=== PATIENT | female | born 1935 | race Caucasian/White ===

== ENCOUNTER 2020-12-27 11:01 | IRF | payer MEDICARE, MEDICAID, SELFPAY ==
[2020-12-27 11:00] VITALS: BP 164/76; PULSE 85; RESP 18; TEMP 36.3; O2SAT 100; BMI 25.8
--- NOTE | 2020-12-27 11:01 | ADMGEN ---
This patient, Lola Sung, was admitted to [facility] Room 226-02. Patient/family oriented to hospital policies and general routines including ID bracelet, bed and alarms, visiting hours, pain management, procedures, bathroom and other care routines, personal items, smoking policy, room service/diet, and visiting hours. Information on how to activate the Rapid Response Team has been discussed. Patient/Family are encouraged to report perceived risks to care and to ask questions if they do not understand what they are told or what they should do.
[2020-12-27 11:23] VITALS: BMI 25.8
[2020-12-27 12:02] LABS: Glucose Point of Care 180 (65-105)
[2020-12-27 14:00] VITALS: BP 120/96; PULSE 52; RESP 18; TEMP 36.2; O2SAT 96
[2020-12-27] MEDS: ACETAMINOPHEN 500 MG TABLET 1000 MG PO (14:04)
--- NOTE | 2020-12-27 14:20 | PHAR ---
Addendum entered by Chari Zambrano, PharmD 12/27/20 14:24: CAPECITABINE 500MG TABLETS VERIFIED BY PHARMACY TAKE 1 TAB PO BID FOR 14 DAYS ON THEN 7 DAYS OFF EVERY 21 DAY CYCLE RX#[id number] Original Note: HOME MEDICATIONS: UNABLE TO VERIFY HOME VITAMINS - UNMARKED TABLETS
--- NOTE | 2020-12-27 16:01 | WPDREHABHP ---
H&P: HPI History of Present Illness Date/Time: 12/27/20 16:01 Chief Complaint: left middle cerebral artery infarct Narrative: HISTORY OF PRESENT ILLNESS: The patient's primary rehab impairment category is 0 1 stroke The etiologic diagnosis is left middle cerebral artery infarct I saw this patient [id number] on 12/27/2020 The patient is a 85-year-old female with prior medical history of atrial fib, coronary artery disease with 1 cardiac stent, diabetes mellitus type 2, hypertension who presented to [facility] on 12/24/2020 with complaints of slurred speech and right-sided facial droop. Symptoms started on 12/21/[address] showed new left frontal lobe hypodensity with no significant mass effect on the left lateral ventricle. Carotid CTA showed occlusion of the left middle cerebral artery am too segment. Recannulization was not recommended patient was admitted to ICU. Neurology was consulted and found that the patient had not been taking her blood thinners due to easy bruising and her diabetes was not well-controlled. Patient had a hemoglobin A1c of 10.0 cholesterol was 243 and LDL was 141. patient was placed on aspirin, Plavix, and Lipitor. Speech evaluation was performed which demonstrated impaired attention and language, dyspraxia. Patient was placed on a dysphagia 3 diet with thin liquids. 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 Neurology follow-up with Dr. Mayo needed and clarification of length of Plavix COVID the patient has not traveled outside the [place] or had contact with someone who is ill at his travel outside the [place] in the past 21 days. The patient has not traveled to an area the [place] that is experiencing no transmission of the Coronavirus and has not had close personal contact with anyone that has. The patient does not have a fever. Patient is not experiencing lower respiratory illness symptoms. COVID test was negative on 12/24/2020 and 12/26/2020 Therapy was initiated at the acute care facility and the patient transferred to us from [facility] on 12/27/2020 FALLS OR SURGERIES: The patient has had no major surgeries in the 100 days prior to admission. She had one falls in the past year. She had falls with injury requirein 9 stitches in the past year. PRIOR LEVEL OF FUNCTION: Eating was [INDEPENDENT] Oral Care was [INDEPENDENT] Toileting Hygiene was [INDEPENDENT] Shower/Bathing was [INDEPENDENT] Upper Body Dressing was [INDEPENDENT] Lower Body Dressing was [INDEPENDENT] Donning/Markesan Footwear was [INDEPENDENT] Rolling Left and Right was [INDEPENDENT] Sit to Lying was [INDEPENDENT] Lying to Sitting was [INDEPENDENT] Sit to Stand was [INDEPENDENT] Bed to Chair Transfers was [INDEPENDENT] Toilet Transfers was [INDEPENDENT] Walking was [INDEPENDENT] 300 ft] with [NO DEVICE] Wheelchair Mobility was [NOT APPLICABLE PRIOR TO ADMISSION] Stairs were [INDEPENDENT for 3 steps] CURRENT LEVEL OF FUNCTION: Eating was supervision or touching assistance Oral Care was supervision or touching assistance Toileting Hygiene was partial to moderate assist Shower/Bathing was partial to moderate assist Upper Body Dressing was partial to moderate assist Lower Body Dressing was partial to moderate assist Donning/Markesan Footwear was partial to moderate assist Rolling Left and Right was partial to moderate assist Sit to Lying was partial to moderate assist Lying to Sitting was partial to moderate assist Sit to Stand was partial to moderate assist Bed to Chair Transfers were partial to moderate assist Toilet Transfers were partial to moderate assist Walking was 4 ft with a roller walker and partial to moderate assistance Wheelchair Mobility was not tested Stairs were not test GOALS: Our therapists will evaluate the patient and establish the goals. However, upon pre-admissio
[2020-12-27 17:19] LABS: Glucose Point of Care 197 (65-105)
[2020-12-27] MEDS: lisinopriL 20 MG TABLET PO (17:21)
[2020-12-27] MEDS: glipiZIDE 5 MG TABLET 10 MG PO (17:21)
[2020-12-27] MEDS: hydroCHLOROthiazide 12.5 MG CAPSULE PO (17:21)
[2020-12-27 20:45] VITALS: PULSE 52; RESP 18; O2SAT 96
[2020-12-27 20:49] LABS: Glucose Point of Care 246 (65-105)
[2020-12-27] MEDS: INSULIN GLARGINE (*BKC) 100 UNITS/ML 15 UNITS SUB-Q (21:46)
[2020-12-27 22:00] VITALS: BP 131/68; PULSE 84; RESP 18; TEMP 36.6; O2SAT 98
[2020-12-28 05:21] LABS: Basophils Percent Auto 0.3 % (0.2-1.2); Eosinophils Absolute Auto 0.1 K/mm3 (0-0.3); Eosinophils Percent Auto 0.9 % (0-4.4); Hematocrit 34.9 % (37.0-47.0); Hemoglobin 12.2 g/dL (12.0-15.0); Immature Granulocyte Absolute 0.01 K/mm3 (0.00-0.031); Immature Granulocyte Percent A 0.1 % (0-0.5); Lymphocytes Absolute Auto 2.77 K/mm3 (0.9-3.2); Lymphocytes Percent Auto 39.3 % (18.3-44.2); Mean Corpuscular Hemoglobin 32.9 pg (26-34); Mean Corpuscular Volume 94.1 fl (80-100); Mean Platelet Volume 10.3 fl (7.4-10.4); Monocytes Absolute Auto 0.8 K/mm3 (0.1-0.6); Monocytes Percent Auto 10.9 % (2.6-8.5); Neutrophils Absolute Auto 3.4 K/mm3 (1.3-6.7); Neutrophils Percent Auto 48.5 % (45.5-73.1); Platelet Count Result 208 k/mm3 (150-375); Red Blood Count 3.71 M/mm3 (4.2-5.4); Red Cell Distribution Width 13.4 % (11.5-14.5)
[2020-12-28 05:36] LABS: Alanine Aminotransferase 12 U/L (4-35); Albumin Level 3.5 g/dL (3.5-5.1); Alkaline Phosphatase 91 U/L (38-126); Anion Gap 4 mmol/L (8-16); Aspartate Amino Transferase 25 U/L (14-36); Bilirubin,Total 0.5 mg/dL (0.2-1.3); Blood Urea Nitrogen 21 mg/dL (7-17); Calcium 9.1 mg/dL (8.4-10.2); Carbon Dioxide 28 mmol/L (22-30); Chloride 104 mmol/L (98-107); Cholesterol 200 mg/dL (0-200); Estimated CRCL calculation 43 ml/min; Estimated Glomerular Filt Rate > 60; Glucose 75 mg/dL (65-105); HDL Direct 64 mg/dL; Potassium 3.2 mmol/L (3.4-5.0); Sodium 136 mmol/L (137-145); Triglycerides 92 mg/dL (<150)
[2020-12-28 05:47] LABS: LDL Cholesterol Direct 102 mg/dL
[2020-12-28 06:00] VITALS: BP 121/44; PULSE 68; RESP 18; TEMP 36.3; O2SAT 99
[2020-12-28 06:09] LABS: Hemoglobin A1C 9.7 % (<5.7)
[2020-12-28] MEDS: glipiZIDE 5 MG TABLET 10 MG PO ×2 (06:45→17:36)
[2020-12-28 07:04] LABS: Glucose Point of Care 78 (65-105)
[2020-12-28] MEDS: ASPIRIN 81 MG ENTERIC TABLET PO (08:58)
[2020-12-28] MEDS: lisinopriL 20 MG TABLET PO ×2 (08:58→17:36)
[2020-12-28] MEDS: PANTOPRAZOLE 40 MG TABLET PO (08:59)
[2020-12-28] MEDS: polyethylene glycoL 3350 17 GM POWD.PACK PO (08:59)
[2020-12-28] MEDS: ENOXAPARIN 40 MG/0.4 ML SYRINGE SUB-Q (08:59)
[2020-12-28] MEDS: CLOPIDOGREL BISULFATE 75 MG TABLET PO (08:59)
[2020-12-28] MEDS: hydroCHLOROthiazide 12.5 MG CAPSULE PO ×2 (08:59→17:36)
[2020-12-28 11:47] LABS: Glucose Point of Care 195 (65-105)
[2020-12-28 12:27] VITALS: BMI 25.8
--- NOTE | 2020-12-28 12:43 | RPD ---
INDIVIDUALIZED PLAN OF CARE FOR Lola Sung Brief Synthesis of Pre-Admission Screen, Post-Admission Evaluation and Therapy Evaluations: The patient presents to rehab with a left middle cerebral artery distribution acute/recent infarction. 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 The complexity of the patient's medical management, nursing, and therapy needs require an inpatient rehab hospital stay with a physician-led interdisciplinary team approach. The patient?s needs will be best met in an intensive program vs. at a lower level of care. The patient requires physician services for medical oversight and coordination of care. Emotional needs will be monitored as depression is a common sequelae of stroke. The patient needs physician monitoring and treatment of hypertension, hyperglycemia, hypokalemia, hyperlipidemia, monitoring for adverse reactions to new medications, and monitoring of infection. The patient requires nursing services for frequent neuro checks, anticoagulation therapy, medication management and education, pressure relief and skin care management, monitoring of labs, bowel and bladder training, diabetes management and education, and fall/safety precautions. The patient will participate in stroke-specific education regarding risk modification to decrease the risk of further stroke; the family will also be invited to participate. Deficits include:ADLs, Balance, Cognition, Endurance, Family Training/Education, Mobility, Pain Management, ROM, Safety, Speech, Strength, Swallowing, Transfers Fender Mechanic Apprentice/Case Management for: Discharge Planning and Patient/Family Counseling Physical Therapy: 5 days per week for 60 minutes. Treatments may include: Therapeutic Exercise, Gait Training, Neuromuscular Re-education, Transfer Training, Community Reintegration, Bed Mobility, Patient/Family Education, Wheelchair Mobility Group Therapy/Concurrent Therapy Rationales: -Improve attention span during functional activities in a distracted environment. -Enhance problem solving and/or adequate judgment skills during functional activities in a distracted environment. -Promote increased safety awareness in a distracted environment to reduce fall risk with functional tasks, transfers, and ambulation to allow a more safe, self-sufficient return to the home environment. -Improve dynamic balance skills to promote safety and independence with functional activities in a distracted environment for maximum gain. Occupational Therapy: 5 days per week for 60 minutes. Treatments may include: Therapeutic Exercise, Therapeutic Activity, Cognitive Training, Self-Care Transfer Training, Community Reintegration, Home Management, Patient/Family Education, Wheelchair Mobility Training, Energy Conservation Training Group Therapy/Concurrent Therapy Rationales: -Allow therapist to observe and teach generalization and carry-over of skills learned in individual therapy. -Enhance problem solving and sequencing skills during therapeutic activities in a distracted environment. -Promote increased safety awareness in a realistic setting to reduce fall risk with functional tasks due to visual and verbal distractions. -Increase functional level with ADLs, ADL transfers and use of adaptive equipment through therapeutic activities with others while promoting safety to allow a more safe, self-sufficient return home. Speech Therapy: 5 days per week for 60 minutes. Treatments may include: Dysphasia Therapy, Speech/Language/Communication Therapy, Cognitive Training, Patient/Family Education Group Therapy/Concurren
[2020-12-28 14:00] VITALS: BP 131/53; PULSE 87; RESP 16; TEMP 36.6; O2SAT 100
--- NOTE | 2020-12-28 15:18 | WPDNEURORHBP ---
Subjective Date/time seen: 12/28/20 15:18 Interval history: The etiologic diagnosis is left middle cerebral artery infarct The patient is a 85-year-old female with prior medical history of atrial fib, coronary artery disease with 1 cardiac stent, diabetes mellitus type 2, hypertension who presented to [facility] on 12/24/2020 with complaints of slurred speech and right-sided facial droop. Symptoms started on 12/21/[address] showed new left frontal lobe hypodensity with no significant mass effect on the left lateral ventricle. Carotid CTA showed occlusion of the left middle cerebral artery am too segment. Recannulization was not recommended patient was admitted to ICU. Neurology was consulted and found that the patient had not been taking her blood thinners due to easy bruising and her diabetes was not well-controlled. Patient had a hemoglobin A1c of 10.0 cholesterol was 243 and LDL was 141. patient was placed on aspirin, Plavix, and Lipitor. Speech evaluation was performed which demonstrated impaired attention and language, dyspraxia. Patient was placed on a dysphagia 3 diet with thin liquids. 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 Neurology follow-up with Dr. Mayo needed and clarification of length of Plavix. Patient with better communication today. Patient voices no complaints Review of Systems Review of Systems: ROS unobtainable: Yes unobtainable due to mental status Functional Status Ambulation Ability Ability to Ambulate 10 Feet: Contact Guard Ability to Ambulate 50 Feet With 2 Turns: Contact Guard Ability to Ambulate 150 Feet: Contact Guard Ambulation Assistive Devices: Walker, Wheeled Transfers Ability Ability to Transfer In/Out of Chair: Contact Guard Exam Narrative: Exam Narrative: patient with right facial droop. External muscles are intact. Poor dentition is noted. Heart rate and rhythm is regular. Lungs are clear to auscultation. Abdomen is soft nontender. Left upper and left lower extremity strength are 4-5 right upper extremity strength is 4- out of 5 right lower extremity strength is 4- to 3+ out of 5 patient demonstrates receptive and expressive aphasia Objective Data Vital Signs Vital Signs: Vital Signs - 24 hr 12/27/20 20:45 12/27/20 22:00 12/28/20 06:00 Temperature 36.6 C 36.3 C L Pulse Rate 52 L 84 68 Respiratory Rate 18 18 18 Blood Pressure 131/68 121/44 L Pulse Oximetry 96 98 99 12/28/20 14:00 Temperature 36.6 C Pulse Rate 87 Respiratory Rate 16 Blood Pressure 131/53 L Pulse Oximetry 100 Intake/Output Intake/Output: Intake & Output 12/25/20 12/26/20 12/27/20 12/28/20 23:59 23:59 23:59 23:59 Intake Total 480 600 Balance 480 600 Meds/Results Medications: Active Medications Generic Name Dose Route Start Last Admin Trade Name Freq PRN Reason Stop Dose Admin Acetaminophen 1,000 mg 12/27/20 13:21 12/27/20 14:04 Acetaminophen 500 Mg Tablet PO 1,000 mg Q6H PRN Administration Pain Aspirin 81 mg 12/28/20 09:00 12/28/20 08:58 Aspirin 81 Mg Enteric Tablet PO 81 mg DAILY GORAN Administration Clopidogrel Bisulfate 75 mg 12/28/20 09:00 12/28/20 08:59 Clopidogrel Bisulfate 75 Mg Tablet PO 75 mg DAILY GORAN Administration Dextrose 12.5 gm 12/27/20 13:16 Dextrose 50% 25 Gm/50 Ml Syringe IV PUSH PRN PRN Hypoglycemia Protocol Enoxaparin Sodium 40 mg 12/28/20 09:00 12/28/20 08:59 Enoxaparin 40 Mg/0.4 Ml Syringe SUB-Q 40 mg DAILY GORAN Administration Glipizide 10 mg 12/27/20 16:30 12/28/20 06:45 Glipizide 5 Mg Tablet PO 10 mg BIDAC GORAN Administration Glucagon 1 mg 12/27/20 13:16 Glucagon For Inj 1 Mg Vial IM PRN PRN Hypoglycemia Protocol Glucose 15 gm 12/27/20 13:16 Glucose Oral Gel 15 Gm Of Glucse In 37.5 Gm Tube PO PRN PRN Hypoglycemia Prot
[2020-12-28 17:23] LABS: Glucose Point of Care 206 (65-105)
[2020-12-28] MEDS: INSULIN ASPART (*BKC) 100 UNITS/ML SUB-Q (17:37)
[2020-12-28] MEDS: INSULIN GLARGINE (*BKC) 100 UNITS/ML 15 UNITS SUB-Q (20:32)
[2020-12-28 20:33] LABS: Glucose Point of Care 215 (65-105)
[2020-12-28 22:00] VITALS: BP 116/67; PULSE 73; RESP 18; TEMP 37.1; O2SAT 100
[2020-12-29] MEDS: glipiZIDE 5 MG TABLET 10 MG PO ×2 (05:44→17:47)
[2020-12-29 05:45] VITALS: BP 124/51; PULSE 67; RESP 16; TEMP 36.1; O2SAT 100
[2020-12-29 07:02] LABS: Glucose Point of Care 153 (65-105)
[2020-12-29] MEDS: CLOPIDOGREL BISULFATE 75 MG TABLET PO (08:58)
[2020-12-29] MEDS: ENOXAPARIN 40 MG/0.4 ML SYRINGE SUB-Q (08:58)
[2020-12-29] MEDS: ASPIRIN 81 MG ENTERIC TABLET PO (08:58)
[2020-12-29] MEDS: lisinopriL 20 MG TABLET PO ×2 (08:59→17:48)
[2020-12-29] MEDS: hydroCHLOROthiazide 12.5 MG CAPSULE PO ×2 (08:59→17:48)
[2020-12-29] MEDS: PANTOPRAZOLE 40 MG TABLET PO (08:59)
[2020-12-29] MEDS: polyethylene glycoL 3350 17 GM POWD.PACK PO (09:00)
[2020-12-29 11:59] LABS: Glucose Point of Care 139 (65-105)
[2020-12-29 14:00] VITALS: BP 122/41; PULSE 74; RESP 20; TEMP 36.3; O2SAT 100
[2020-12-29 17:05] LABS: Glucose Point of Care 171 (65-105)
[2020-12-29] MEDS: INSULIN GLARGINE (*BKC) 100 UNITS/ML 15 UNITS SUB-Q (21:20)
[2020-12-29 21:33] LABS: Glucose Point of Care 206 (65-105)
[2020-12-29 22:00] VITALS: BP 103/74; PULSE 68; RESP 16; TEMP 36.3; O2SAT 100
[2020-12-30 05:53] VITALS: BP 127/44; PULSE 70; RESP 16; TEMP 36; O2SAT 99
[2020-12-30 06:12] LABS: Glucose Point of Care 81 (65-105)
[2020-12-30] MEDS: glipiZIDE 5 MG TABLET 10 MG PO ×2 (06:37→17:45)
[2020-12-30 08:00] VITALS: PULSE 70; RESP 16; O2SAT 99
[2020-12-30] MEDS: ENOXAPARIN 40 MG/0.4 ML SYRINGE SUB-Q (09:21)
[2020-12-30] MEDS: lisinopriL 20 MG TABLET PO ×2 (09:22→17:45)
[2020-12-30] MEDS: hydroCHLOROthiazide 12.5 MG CAPSULE PO ×2 (09:22→17:46)
[2020-12-30] MEDS: CLOPIDOGREL BISULFATE 75 MG TABLET PO (09:22)
[2020-12-30] MEDS: PANTOPRAZOLE 40 MG TABLET PO (09:22)
[2020-12-30] MEDS: polyethylene glycoL 3350 17 GM POWD.PACK PO (09:22)
[2020-12-30] MEDS: ASPIRIN 81 MG ENTERIC TABLET PO (09:22)
[2020-12-30 12:11] LABS: Glucose Point of Care 145 (65-105)
[2020-12-30 14:00] VITALS: BP 107/55; PULSE 68; RESP 18; TEMP 36.6; O2SAT 100
--- NOTE | 2020-12-30 14:05 | WPDNEURORHBP ---
Subjective Date/time seen: 12/30/20 14:05 85 years old admitted to the rehab with left hemispheric stroke in addition to comorbid conditions of 1. Atrial fibrillation 2. Coronary artery disease with stenting 3. Diabetes mellitus 4. Hypertension CTA documented occlusion of the left middle cerebral artery patient had been off her blood thinners for the complaints of easy bruising and the diabetes was not very well controlled , remains afebrile CBC with hemoglobin 12.2 WBC 7.0 blood sugar stable involved in therapy able to ambulate up to 150ft with contact guard and using a wheeled walker Review of Systems Review of Systems: All systems reviewed & are unremarkable except as noted in HPI and below Functional Status Ambulation Ability Ability to Ambulate 10 Feet: Standby Assistance Ability to Ambulate 50 Feet With 2 Turns: Contact Guard Ability to Ambulate 150 Feet: Contact Guard Ambulation Assistive Devices: Walker, Wheeled Transfers Ability Ability to Transfer In/Out of Chair: Standby Assistance Exam Const: General: cooperative and comfortable Nutritional Appearance: average body habitus Orientation/consciousness: oriented to person Limitations: physical limitations Neck: Neck: full ROM Resp: Effort & Inspection: normal respiratory effort Cardio: Rate: regular rate Rhythm: regular rhythm GI: Auscultation: normal bowel sounds Neuro: General: oriented to person Cranial nerves: Yes Equal, round and reactive pupils present, Yes Nystagmus not present and Yes facial symmetry ( asymmetric) Cognition (Neuro): normal cognition Speech: Abnormal speech present Gait exam (Neuro): Assisted gait required Motor exam (neuro): Abnormal motor strength present Psych: Appearance: grossly normal Objective Data Vital Signs Vital Signs: Vital Signs - 24 hr 12/29/20 22:00 12/30/20 05:53 12/30/20 08:00 Temperature 36.3 C L 36.0 C L Pulse Rate 68 70 70 Respiratory Rate 16 16 16 Blood Pressure 103/74 127/44 L Pulse Oximetry 100 99 99 Intake/Output Intake/Output: Intake & Output 12/27/20 12/28/20 12/29/20 12/30/20 23:59 23:59 23:59 23:59 Intake Total 480 840 720 240 Balance 480 840 720 240 Meds/Results Medications: Active Medications Generic Name Dose Route Start Last Admin Trade Name Freq PRN Reason Stop Dose Admin Acetaminophen 1,000 mg 12/27/20 13:21 12/27/20 14:04 Acetaminophen 500 Mg Tablet PO 1,000 mg Q6H PRN Administration Pain Aspirin 81 mg 12/28/20 09:00 12/30/20 09:22 Aspirin 81 Mg Enteric Tablet PO 81 mg DAILY GORAN Administration Clopidogrel Bisulfate 75 mg 12/28/20 09:00 12/30/20 09:22 Clopidogrel Bisulfate 75 Mg Tablet PO 75 mg DAILY GORAN Administration Dextrose 12.5 gm 12/27/20 13:16 Dextrose 50% 25 Gm/50 Ml Syringe IV PUSH PRN PRN Hypoglycemia Protocol Enoxaparin Sodium 40 mg 12/28/20 09:00 12/30/20 09:21 Enoxaparin 40 Mg/0.4 Ml Syringe SUB-Q 40 mg DAILY GORAN Administration Glipizide 10 mg 12/27/20 16:30 12/30/20 06:37 Glipizide 5 Mg Tablet PO 10 mg BIDAC GORAN Administration Glucagon 1 mg 12/27/20 13:16 Glucagon For Inj 1 Mg Vial IM PRN PRN Hypoglycemia Protocol Glucose 15 gm 12/27/20 13:16 Glucose Oral Gel 15 Gm Of Glucse In 37.5 Gm Tube PO PRN PRN Hypoglycemia Protocol Hydrochlorothiazide 12.5 mg 12/27/20 17:00 12/30/20 09:22 Hydrochlorothiazide 12.5 Mg Capsule PO 12.5 mg BID GORAN Administration Dextrose 1,000 mls @ 100 mls/hr 12/27/20 13:16 Dextrose 5% 1,000 Ml IVPB PRN PRN Hypoglycemia Protocol Insulin Aspart 2 - 5 units 12/27/20 17:00 12/30/20 12:19 Insulin Aspart (*Bkc) 100 Units/Ml SUB-Q Not Given [facility] Protocol Insulin Glargine 15 units 12/27/20 21:00 12/29/20 21:20 Insulin Glargine (*Bkc) 100 Units/Ml SUB-Q 15 units HS GORAN Administration Lisinopril 20 mg 12/27/20 17:00 12/30/20 09:22 Lisinopril
[2020-12-30 16:50] LABS: Glucose Point of Care 148 (65-105)
[2020-12-30 21:10] LABS: Glucose Point of Care 241 (65-105)
[2020-12-30] MEDS: INSULIN GLARGINE (*BKC) 100 UNITS/ML 15 UNITS SUB-Q (21:11)
[2020-12-30 21:49] VITALS: BP 148/87; PULSE 73; RESP 16; TEMP 36.1; O2SAT 100
[2020-12-31 05:36] LABS: Glucose Point of Care 87 (65-105)
[2020-12-31 05:56] VITALS: BP 139/54; PULSE 69; RESP 18; TEMP 36.3; O2SAT 100
[2020-12-31] MEDS: glipiZIDE 5 MG TABLET 10 MG PO ×2 (06:12→17:28)
[2020-12-31 08:00] VITALS: PULSE 69; RESP 18; O2SAT 100
[2020-12-31] MEDS: ENOXAPARIN 40 MG/0.4 ML SYRINGE SUB-Q (09:08)
[2020-12-31] MEDS: PANTOPRAZOLE 40 MG TABLET PO (09:08)
[2020-12-31] MEDS: ASPIRIN 81 MG ENTERIC TABLET PO (09:08)
[2020-12-31] MEDS: lisinopriL 20 MG TABLET PO ×2 (09:08→17:29)
[2020-12-31] MEDS: CLOPIDOGREL BISULFATE 75 MG TABLET PO (09:09)
[2020-12-31] MEDS: hydroCHLOROthiazide 12.5 MG CAPSULE PO ×2 (09:09→17:28)
[2020-12-31] MEDS: polyethylene glycoL 3350 17 GM POWD.PACK PO (09:10)
[2020-12-31 12:08] LABS: Glucose Point of Care 175 (65-105)
[2020-12-31 14:00] VITALS: BP 143/85; PULSE 65; RESP 16; TEMP 36; O2SAT 100
[2020-12-31 17:16] LABS: Glucose Point of Care 143 (65-105)
[2020-12-31] MEDS: TOLNAFTATE 1% POWDER 45 GM BTL 1 APPLIC TOPICAL ×2 (17:28→21:00)
[2020-12-31 20:00] VITALS: PULSE 66; RESP 16; O2SAT 100
[2020-12-31] MEDS: INSULIN GLARGINE (*BKC) 100 UNITS/ML 15 UNITS SUB-Q (20:58)
[2020-12-31 21:16] LABS: Glucose Point of Care 153 (65-105)
[2020-12-31 21:43] VITALS: BP 132/67; PULSE 66; RESP 16; TEMP 36.4; O2SAT 100
[2021-01-01 06:00] VITALS: BP 173/64; PULSE 74; RESP 16; TEMP 36; O2SAT 100
[2021-01-01 06:26] LABS: Glucose Point of Care 64 (65-105)
[2021-01-01] MEDS: glipiZIDE 5 MG TABLET 10 MG PO ×2 (07:14→18:02)
[2021-01-01 08:02] LABS: Glucose Point of Care 90 (65-105)
[2021-01-01] MEDS: PANTOPRAZOLE 40 MG TABLET PO (09:30)
[2021-01-01] MEDS: ENOXAPARIN 40 MG/0.4 ML SYRINGE SUB-Q (09:30)
[2021-01-01] MEDS: hydroCHLOROthiazide 12.5 MG CAPSULE PO ×2 (09:30→18:02)
[2021-01-01] MEDS: CLOPIDOGREL BISULFATE 75 MG TABLET PO (09:30)
[2021-01-01] MEDS: lisinopriL 20 MG TABLET PO ×2 (09:30→18:03)
[2021-01-01] MEDS: ASPIRIN 81 MG ENTERIC TABLET PO (09:30)
[2021-01-01] MEDS: polyethylene glycoL 3350 17 GM POWD.PACK PO (09:30)
[2021-01-01] MEDS: TOLNAFTATE 1% POWDER 45 GM BTL 1 APPLIC TOPICAL (09:31)
[2021-01-01 12:38] LABS: Glucose Point of Care 109 (65-105)
[2021-01-01 14:00] VITALS: BP 145/44; PULSE 66; RESP 20; TEMP 36.3; O2SAT 99
--- NOTE | 2021-01-01 15:58 | WPDNEURORHBP ---
Subjective Date/time seen: 01/01/21 15:58 Interval history: The etiologic diagnosis is left middle cerebral artery infarct The patient is a 85-year-old female with prior medical history of atrial fib, coronary artery disease with 1 cardiac stent, diabetes mellitus type 2, hypertension who presented to [facility] on 12/24/2020 with complaints of slurred speech and right-sided facial droop. Symptoms started on 12/21/[address] showed new left frontal lobe hypodensity with no significant mass effect on the left lateral ventricle. Carotid CTA showed occlusion of the left middle cerebral artery am too segment. Recannulization was not recommended patient was admitted to ICU. Neurology was consulted and found that the patient had not been taking her blood thinners due to easy bruising and her diabetes was not well-controlled. Patient had a hemoglobin A1c of 10.0 cholesterol was 243 and LDL was 141. patient was placed on aspirin, Plavix, and Lipitor. Speech evaluation was performed which demonstrated impaired attention and language, dyspraxia. Patient was placed on a dysphagia 3 diet with thin liquids. 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 Neurology follow-up with Dr. Mayo needed and clarification of length of Plavix. Patient with better overall endurance. Review of Systems Review of Systems: All systems reviewed & are unremarkable except as noted in HPI and below ROS unobtainable: Yes unobtainable due to mental status Functional Status Ambulation Ability Ability to Ambulate 10 Feet: Independent Ability to Ambulate 50 Feet With 2 Turns: Independent Ability to Ambulate 150 Feet: Independent Ambulation Assistive Devices: Walker, Wheeled Transfers Ability Ability to Transfer In/Out of Chair: Standby Assistance Exam Narrative: Exam Narrative: patient with right facial droop. External muscles are intact. Poor dentition is noted. Heart rate and rhythm is regular. Lungs are clear to auscultation. Abdomen is soft nontender. Left upper and left lower extremity strength are 4-5 right upper extremity strength is 4- out of 5 right lower extremity strength is 4- to 3+ out of 5. Lola with better awareness and speed of speech. Const: General: cooperative and comfortable Nutritional Appearance: average body habitus Orientation/consciousness: oriented to person Limitations: physical limitations Eyes: Pupils: Equal, round and reactive pupils present Neck: Neck: full ROM Resp: Effort & Inspection: normal respiratory effort Cardio: Rate: regular rate Rhythm: regular rhythm GI: Auscultation: normal bowel sounds Neuro: General: oriented to person Cranial nerves: Yes Equal, round and reactive pupils present, Yes Nystagmus not present and Yes facial symmetry ( asymmetric) Cognition (Neuro): normal cognition Speech: Abnormal speech present Gait exam (Neuro): Assisted gait required Motor exam (neuro): Abnormal motor strength present Psych: Appearance: grossly normal Objective Data Vital Signs Vital Signs: Vital Signs - 24 hr 12/31/20 20:00 12/31/20 21:43 01/01/21 06:00 Temperature 36.4 C 36.0 C L Pulse Rate 66 66 74 Respiratory Rate 16 16 16 Blood Pressure 132/67 173/64 H Pulse Oximetry 100 100 100 01/01/21 14:00 Temperature 36.3 C L Pulse Rate 66 Respiratory Rate 20 Blood Pressure 145/44 H Pulse Oximetry 99 Intake/Output Intake/Output: Intake & Output 12/29/20 12/30/20 12/31/20 01/01/21 23:59 23:59 23:59 23:59 Intake Total 720 680 960 480 Balance 720 680 960 480 Meds/Results Medications: Active Medications Generic Name Dose Route Start Last Admin Trade Name Freq PRN Reason Stop Dose Admin Acetaminophen 1,000 mg 12/27/20 13:21 12/27/20 14:04 Acetaminophen 500 Mg Tablet PO 1,000 mg Q6H PRN Administration Pain Aspirin 81 mg 12/28/20 09:00 01/01/21 09:30 Aspirin
[2021-01-01 17:17] LABS: Glucose Point of Care 116 (65-105)
[2021-01-01 20:36] LABS: Glucose Point of Care 172 (65-105)
[2021-01-01] MEDS: INSULIN GLARGINE (*BKC) 100 UNITS/ML 15 UNITS SUB-Q (21:04)
[2021-01-01 21:33] VITALS: BP 177/80; PULSE 70; RESP 16; TEMP 36.5; O2SAT 100
[2021-01-02 06:00] VITALS: BP 149/54; PULSE 71; RESP 16; TEMP 36.6; O2SAT 100
[2021-01-02] MEDS: glipiZIDE 5 MG TABLET 10 MG PO ×2 (06:17→18:34)
[2021-01-02 07:14] LABS: Glucose Point of Care 55 (65-105)
[2021-01-02 07:20] LABS: Glucose Point of Care 57 (65-105)
[2021-01-02 07:41] LABS: Glucose Point of Care 69 (65-105)
[2021-01-02] MEDS: hydroCHLOROthiazide 12.5 MG CAPSULE PO ×2 (10:49→18:35)
[2021-01-02] MEDS: lisinopriL 20 MG TABLET PO ×2 (10:49→18:35)
[2021-01-02] MEDS: PANTOPRAZOLE 40 MG TABLET PO (10:49)
[2021-01-02] MEDS: ASPIRIN 81 MG ENTERIC TABLET PO (10:49)
[2021-01-02] MEDS: CLOPIDOGREL BISULFATE 75 MG TABLET PO (10:49)
[2021-01-02] MEDS: EUCERIN CREAM 120 GM JAR 1 APPLIC TOPICAL (10:50)
[2021-01-02] MEDS: polyethylene glycoL 3350 17 GM POWD.PACK PO (10:50)
[2021-01-02 11:57] LABS: Glucose Point of Care 109 (65-105)
[2021-01-02 14:00] VITALS: BP 125/59; PULSE 74; RESP 18; TEMP 36.2; O2SAT 100
--- NOTE | 2021-01-02 16:07 | WPDNEURORHBP ---
Subjective Date/time seen: 01/02/21 16:07 Interval history: The etiologic diagnosis is left middle cerebral artery infarct The patient is a 85-year-old female with prior medical history of atrial fib, coronary artery disease with 1 cardiac stent, diabetes mellitus type 2, hypertension who presented to [facility] on 12/24/2020 with complaints of slurred speech and right-sided facial droop. Symptoms started on 12/21/[address] showed new left frontal lobe hypodensity with no significant mass effect on the left lateral ventricle. Carotid CTA showed occlusion of the left middle cerebral artery am too segment. Recannulization was not recommended patient was admitted to ICU. Neurology was consulted and found that the patient had not been taking her blood thinners due to easy bruising and her diabetes was not well-controlled. Patient had a hemoglobin A1c of 10.0 cholesterol was 243 and LDL was 141. patient was placed on aspirin, Plavix, and Lipitor. Speech evaluation was performed which demonstrated impaired attention and language, dyspraxia. Patient was placed on a dysphagia 3 diet with thin liquids. 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 Neurology follow-up with Dr. Mayo needed and clarification of length of Plavix. Patient with better overall endurance. Patient pleased with progress Review of Systems Review of Systems: All systems reviewed & are unremarkable except as noted in HPI and below ROS unobtainable: Yes unobtainable due to mental status Neurologic: Reports Abnormal speech present Functional Status Ambulation Ability Ability to Ambulate 10 Feet: Independent Ability to Ambulate 50 Feet With 2 Turns: Independent Ability to Ambulate 150 Feet: Independent Ambulation Assistive Devices: Walker, Wheeled Transfers Ability Ability to Transfer In/Out of Chair: Standby Assistance Exam Narrative: Exam Narrative: patient with right facial droop. External muscles are intact. Poor dentition is noted. Heart rate and rhythm is regular. Lungs are clear to auscultation. Abdomen is soft nontender. Left upper and left lower extremity strength are 4-5 right upper extremity strength is 4- out of 5 right lower extremity strength is 4- to 3+ out of 5. Lola with better awareness and speed of speech. Objective Data Vital Signs Vital Signs: Vital Signs - 24 hr 01/01/21 21:33 01/02/21 06:00 01/02/21 14:00 Temperature 36.5 C 36.6 C 36.2 C L Pulse Rate 70 71 74 Respiratory Rate 16 16 18 Blood Pressure 177/80 H 149/54 H 125/59 L Pulse Oximetry 100 100 100 Intake/Output Intake/Output: Intake & Output 12/30/20 12/31/20 01/01/21 01/02/21 23:59 23:59 23:59 23:59 Intake Total 680 960 720 720 Balance 680 960 720 720 Meds/Results Medications: Active Medications Generic Name Dose Route Start Last Admin Trade Name Freq PRN Reason Stop Dose Admin Acetaminophen 1,000 mg 12/27/20 13:21 12/27/20 14:04 Acetaminophen 500 Mg Tablet PO 1,000 mg Q6H PRN Administration Pain Aspirin 81 mg 12/28/20 09:00 01/02/21 10:49 Aspirin 81 Mg Enteric Tablet PO 81 mg DAILY GORAN Administration Clopidogrel Bisulfate 75 mg 12/28/20 09:00 01/02/21 10:49 Clopidogrel Bisulfate 75 Mg Tablet PO 75 mg DAILY GORAN Administration Dextrose 12.5 gm 12/27/20 13:16 Dextrose 50% 25 Gm/50 Ml Syringe IV PUSH PRN PRN Hypoglycemia Protocol Glipizide 10 mg 12/27/20 16:30 01/02/21 06:17 Glipizide 5 Mg Tablet PO 10 mg BIDAC GORAN Administration Glucagon 1 mg 12/27/20 13:16 Glucagon For Inj 1 Mg Vial IM PRN PRN Hypoglycemia Protocol Glucose 15 gm 12/27/20 13:16 Glucose Oral Gel 15 Gm Of Glucse In 37.5 Gm Tube PO PRN PRN Hypoglycemia Protocol Hydrochlorothiazide 12.5 mg 12/27/20 17:00 01/02/21 10:49 Hydrochlorothiazide 12.5 Mg Capsule PO 1
[2021-01-02 16:53] LABS: Glucose Point of Care 146 (65-105)
[2021-01-02] MEDS: INSULIN GLARGINE (*BKC) 100 UNITS/ML 12 UNITS SUB-Q (20:38)
[2021-01-02 21:11] LABS: Glucose Point of Care 189 (65-105)
[2021-01-02 22:00] VITALS: BP 151/82; PULSE 64; RESP 16; TEMP 36.7; O2SAT 97
[2021-01-03 06:00] VITALS: BP 147/59; PULSE 64; RESP 18; TEMP 36.3; O2SAT 99
[2021-01-03 06:51] LABS: Glucose Point of Care 53 (65-105)
[2021-01-03 07:11] LABS: Glucose Point of Care 86 (65-105)
[2021-01-03] MEDS: CLOPIDOGREL BISULFATE 75 MG TABLET PO (08:37)
[2021-01-03] MEDS: hydroCHLOROthiazide 12.5 MG CAPSULE PO ×2 (08:37→17:09)
[2021-01-03] MEDS: PANTOPRAZOLE 40 MG TABLET PO (08:37)
[2021-01-03] MEDS: ASPIRIN 81 MG ENTERIC TABLET PO (08:37)
[2021-01-03] MEDS: polyethylene glycoL 3350 17 GM POWD.PACK PO (08:38)
[2021-01-03] MEDS: lisinopriL 20 MG TABLET PO ×2 (08:39→17:09)
[2021-01-03] MEDS: EUCERIN CREAM 120 GM JAR 1 APPLIC TOPICAL (08:40)
[2021-01-03 11:49] LABS: Glucose Point of Care 155 (65-105)
--- NOTE | 2021-01-03 13:23 | PCDIET ---
Nutrition Follow-Up Complete: Nutrition Diagnosis: Altered nutrition related laboratory values related to DM as evidence by A1c of 9.7%. Nutrition Goal: Adherence to diet with adequate intake of 75% of meals or greater Goal met. Patient consuming 75-100% of most meals on diabetic diet. Discussed diet with patient and daughter in law this date. Last recorded weight is 72.6 kg. Recommend obtaining new weight. Bowel Motility: Last documented BM on 01/01/21. Labs Reviewed: Glu (86) Meds Noted: Glucotrol, Hydrochlorothiazide, Novolog, Lantus, Lisinopril, Protonix, Miralax Additional Notes: Daughter in law reports abdomen is reddened due to tight pants and plans to buy patient a larger size. No pressure sores documented. Will continue to monitor with same goal. Nutrition Monitoring and Evaluation: Follow up in 7 days.
[2021-01-03 14:00] VITALS: BP 146/52; PULSE 62; RESP 16; TEMP 36.8; O2SAT 100
[2021-01-03 16:52] LABS: Glucose Point of Care 148 (65-105)
--- NOTE | 2021-01-03 17:05 | WPDNEURORHBP ---
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 Symptoms started on 12/21/[address] showed new left frontal lobe hypodensity with no significant mass effect on the left lateral ventricle. Carotid CTA showed occlusion of the left middle cerebral artery am too segment. Recannulization was not recommended patient was admitted to ICU. Neurology was consulted and found that the patient had not been taking her blood thinners due to easy bruising and her diabetes was not well-controlled. Patient had a hemoglobin A1c of 10.0 cholesterol was 243 and LDL was 141. patient was placed on aspirin, Plavix, and Lipitor. Speech evaluation was performed which demonstrated impaired attention and language, dyspraxia. Patient was placed on a dysphagia 3 diet with thin liquids. 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 Neurology follow-up with Dr. Mayo needed and clarification of length of Plavix. Patient with better overall endurance. Patient pleased with progress Review of Systems Review of Systems: All systems reviewed & are unremarkable except as noted in HPI and below ROS unobtainable: Yes unobtainable due to mental status Neurologic: Reports Abnormal speech present Functional Status Ambulation Ability Ability to Ambulate 10 Feet: Independent Ability to Ambulate 50 Feet With 2 Turns: Independent Ability to Ambulate 150 Feet: Independent Ambulation Assistive Devices: Walker, Wheeled Transfers Ability Ability to Transfer In/Out of Chair: Standby Assistance Exam Narrative: Exam Narrative: patient with right facial droop. External muscles are intact. Poor dentition is noted. Heart rate and rhythm is regular. Lungs are clear to auscultation. Abdomen is soft nontender. Left upper and left lower extremity strength are 4-5 right upper extremity strength is 4- out of 5 right lower extremity strength is 4- to 3+ out of 5. Lola with better awareness and speed of speech. Objective Data Vital Signs Vital Signs: Vital Signs - 24 hr 01/02/21 22:00 01/03/21 06:00 01/03/21 14:00 Temperature 36.7 C 36.3 C L 36.8 C Pulse Rate 64 64 62 Respiratory Rate 16 18 16 Blood Pressure 151/82 H 147/59 H 146/52 H Pulse Oximetry 97 99 100 Intake/Output Intake/Output: Intake & Output 12/31/20 01/01/21 01/02/21 01/03/21 23:59 23:59 23:59 23:59 Intake Total 960 720 960 600 Balance 960 720 960 600 Meds/Results Medications: Active Medications Generic Name Dose Route Start Last Admin Trade Name Freq PRN Reason Stop Dose Admin Acetaminophen 1,000 mg 12/27/20 13:21 12/27/20 14:04 Acetaminophen 500 Mg Tablet PO 1,000 mg Q6H PRN Administration Pain Aspirin 81 mg 12/28/20 09:00 01/03/21 08:37 Aspirin 81 Mg Enteric Tablet PO 81 mg DAILY GORAN Administration Clopidogrel Bisulfate 75 mg 12/28/20 09:00 01/03/21 08:37 Clopidogrel Bisulfate 75 Mg Tablet PO 75 mg DAILY GORAN Administration Dextrose 12.5 gm 12/27/20 13:16 Dextrose 50% 25 Gm/50 Ml Syringe IV PUSH PRN PRN Hypoglycemia Protocol Glipizide 10 mg 12/27/20 16:30 01/03/21 07:34 Glipizide 5 Mg Tablet PO Not Given BIDAC GORAN Glucagon 1 mg 12/27/20 13:16 Glucagon For Inj 1 Mg Vial IM PRN PRN Hypoglycemia Protocol Glucose 15 gm 12/27/20 13:16 Glucose Oral Gel 15 Gm Of Glucse In 37.5 Gm Tube PO PRN PRN Hypoglycemia Protocol Hydrochlorothiazide 12.5 mg 12/27/20 17:00 01/03/21 08:37 Hydrochlorothiazide 12.5 Mg Capsule PO 12.5 mg BID
[2021-01-03] MEDS: glipiZIDE 5 MG TABLET 10 MG PO (17:09)
[2021-01-03] MEDS: ATORVASTATIN 40 MG TABLET PO (20:37)
[2021-01-03 21:12] LABS: Glucose Point of Care 190 (65-105)
[2021-01-03 22:00] VITALS: BP 141/89; PULSE 61; RESP 18; TEMP 36.3; O2SAT 100
[2021-01-04 04:57] LABS: Basophils Absolute Auto 0.1 K/mm3 (0.0-0.1); Eosinophils Absolute Auto 0.2 K/mm3 (0-0.3); Eosinophils Percent Auto 3.1 % (0-4.4); Hematocrit 33.9 % (37.0-47.0); Hemoglobin 11.8 g/dL (12.0-15.0); Lymphocytes Absolute Auto 2.43 K/mm3 (0.9-3.2); Lymphocytes Percent Auto 50.8 % (18.3-44.2); Mean Corpuscular HGB Conc 34.8 g/dl (32-36); Mean Corpuscular Hemoglobin 33.2 pg (26-34); Mean Corpuscular Volume 95.5 fl (80-100); Mean Platelet Volume 9.8 fl (7.4-10.4); Monocytes Absolute Auto 0.5 K/mm3 (0.1-0.6); Monocytes Percent Auto 11.1 % (2.6-8.5); Neutrophils Absolute Auto 1.6 K/mm3 (1.3-6.7); Platelet Count Result 246 k/mm3 (150-375); Red Blood Count 3.55 M/mm3 (4.2-5.4); Red Cell Distribution Width 13.3 % (11.5-14.5); White Blood Count 4.8 K/mm3 (4.5-10.0)
[2021-01-04 05:11] LABS: Potassium 3.7 mmol/L (3.4-5.0)
[2021-01-04 05:13] LABS: Alanine Aminotransferase 26 U/L (4-35); Albumin Level 3.5 g/dL (3.5-5.1); Alkaline Phosphatase 79 U/L (38-126); Anion Gap 3 mmol/L (8-16); Aspartate Amino Transferase 44 U/L (14-36); Bilirubin,Total 0.3 mg/dL (0.2-1.3); Blood Urea Nitrogen 20 mg/dL (7-17); Calcium 9.3 mg/dL (8.4-10.2); Carbon Dioxide 30 mmol/L (22-30); Chloride 104 mmol/L (98-107); Estimated CRCL calculation 43 ml/min; Estimated Glomerular Filt Rate > 60; Glucose 78 mg/dL (65-105); Sodium 137 mmol/L (137-145)
[2021-01-04 06:00] VITALS: BP 133/43; PULSE 63; RESP 18; TEMP 36.1; O2SAT 100
[2021-01-04 06:32] LABS: Glucose Point of Care 77 (65-105)
[2021-01-04] MEDS: CLOPIDOGREL BISULFATE 75 MG TABLET PO (09:48)
[2021-01-04] MEDS: glipiZIDE 5 MG TABLET 10 MG PO (09:48)
[2021-01-04] MEDS: ASPIRIN 81 MG ENTERIC TABLET PO (09:48)
[2021-01-04] MEDS: EUCERIN CREAM 120 GM JAR 1 APPLIC TOPICAL (09:49)
[2021-01-04] MEDS: hydroCHLOROthiazide 12.5 MG CAPSULE PO (09:49)
[2021-01-04] MEDS: polyethylene glycoL 3350 17 GM POWD.PACK PO (09:49)
[2021-01-04] MEDS: PANTOPRAZOLE 40 MG TABLET PO (09:49)
[2021-01-04] MEDS: lisinopriL 20 MG TABLET PO (09:49)
--- NOTE | 2021-01-04 09:49 | PM.DS ---
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 DS: Discharge Diagnosis Discharge Diagnosis (1) CVA (cerebral vascular accident): Code(s): I63.9 - Cerebral infarction, unspecified Status: Acute Assessment and Plan: aspirin, Plavix, (2) Right hemiplegia: Code(s): G81.91 - Hemiplegia, unspecified affecting right dominant side Status: Acute (3) Cognitive deficits: Code(s): R41.89 - Other symptoms and signs involving cognitive functions and awareness Status: Acute (4) DM2 (diabetes mellitus, type 2): Code(s): E11.9 - Type 2 diabetes mellitus without complications Status: Acute Assessment and Plan: sliding-scale insulin, glipizide (5) Atrial fibrillation: Code(s): I48.91 - Unspecified atrial fibrillation Status: Acute (6) Hypertension: Code(s): I10 - Essential (primary) hypertension Status: Acute Assessment and Plan: lisinopril, hydrochlorothiazide, (7) Hypothyroidism: Code(s): E03.9 - Hypothyroidism, unspecified Status: Acute (8) Iron deficiency anemia: Code(s): D50.9 - Iron deficiency anemia, unspecified Status: Acute (9) Urinary incontinence: Code(s): R32 - Unspecified urinary incontinence Status: Acute (10) Chronic low back pain: Code(s): M54.5 - Low back pain; G89.29 - Other chronic pain Status: Acute (11) History of bradycardia: Code(s): Z87.898 - Personal history of other specified conditions Status: Acute (12) Osteoarthritis: Code(s): M19.90 - Unspecified osteoarthritis, unspecified site Status: Acute (13) Hyperlipidemia: Code(s): E78.5 - Hyperlipidemia, unspecified Status: Acute (14) Glaucoma: Code(s): H40.9 - Unspecified glaucoma Status: Acute (15) Coronary artery disease: Code(s): I25.10 - Atherosclerotic heart disease of tel[place] coronary artery without angina pectoris Status: Acute (16) Anxiety: Code(s): F41.9 - Anxiety disorder, unspecified Status: Acute (17) Rhinorrhea: Code(s): J00 - Acute nasopharyngitis [common cold] Status: Acute (18) GERD (gastroesophageal reflux disease): Code(s): K21.9 - Gastro-esophageal reflux disease without esophagitis Status: Acute (19) Depression: Code(s): F32.9 - Major depressive disorder, single episode, unspecified Status: Acute (20) Dementia: Code(s): F03.90 - Unspecified dementia without behavioral disturbance Status: Acute (21) Breast cancer: Code(s): C50.919 - Malignant neoplasm of unspecified site of unspecified female breast Status: Acute Assessment and Plan: on home meds DS: Summary Hospital Course Hospital Course: Interval history: 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 Symptoms started on 12/21/[address] showed new left frontal lobe hypodensity with no significant mass effect on the left lateral ventricle. Carotid CTA showed occlusion of the left middle cerebral artery am too segment. Recannulization was not recommended patient was admitted to ICU. Neurology was consulted and found that the patient had not been taking her blood thinners due to easy bruising and her diabetes was not well-controlled. Patient had a hemoglobin A1c of 10.0 cholesterol was 243 and LDL was 141. patient was placed on aspirin, Plavix, and Lipitor. Speech evaluation was performed which demonstrated impaired attention and language, dyspraxia. Patient was placed on a dysphagia 3 diet with thin liquids.
[2021-01-04 10:15] VITALS: BMI 25.8
[2021-01-04 11:44] LABS: Glucose Point of Care 189 (65-105)
== END 2021-01-04 13:30 | disposition home health service (06) | DRG 57 ==
PROVIDERS: Admitting Provider Physical Medicine & Rehabilitation; PCP Family Medicine; Visit Provider Physical Medicine & Rehabilitation
DX: I69.351 Hemiplegia and hemiparesis following cerebral infarction affecting right dominant side (principal); C79.51 Secondary malignant neoplasm of bone; R13.10 Dysphagia, unspecified; I69.322 Dysarthria following cerebral infarction; I69.392 Facial weakness following cerebral infarction; I69.391 Dysphagia following cerebral infarction; C50.411 Malignant neoplasm of upper-outer quadrant of right female breast; D50.9 Iron deficiency anemia, unspecified; E11.65 Type 2 diabetes mellitus with hyperglycemia; E78.5 Hyperlipidemia, unspecified; E03.9 Hypothyroidism, unspecified; F03.90 Unspecified dementia, unspecified severity, without behavioral disturbance, psychotic disturbance, mood disturbance, and anxiety; I48.91 Unspecified atrial fibrillation; I25.10 Atherosclerotic heart disease of native coronary artery without angina pectoris; I10 Essential (primary) hypertension; Z95.5 Presence of coronary angioplasty implant and graft; Z79.84 Long term (current) use of oral hypoglycemic drugs
CPT/HCPCS: 36415; 80053; 80061; 82948; 83036; 85025; 92507; 92523; 97110; 97116; 97161; 97166; 97530; 97535; A9270; J1650; J1815